=== PATIENT | male | born 1940 | race Hispanic/Latino ===

== ENCOUNTER 2023-10-19 07:36 | Observation (INO) | payer MEDICARE, OTHER ==
[2023-10-16 13:14] LABS: BASOPHILS # (AUTO) 0.1 (0.0-0.1); BASOPHILS % 0.6 % (0.0-1.0); EOSINOPHILS # (AUTO) 0.1 (0.0-0.4); EOSINOPHILS % 0.6 % (0.0-6.0); HEMATOCRIT 40.9 % (38.2-49.6); HEMOGLOBIN 13.6 g/dL (14.0-18.0); LYMPHOCYTES # (AUTO) 2.8 (1.0-3.2); MEAN CORPUSCULAR HGB CONC 33.3 g/dL (31-35); MEAN CORPUSCULAR VOLUME 93.2 fL (81-99); MONOCYTES # (AUTO) 1.1 (0.2-0.8); MONOCYTES % 11.6 % (4.4-11.3); NEUTROPHILS % 55.6 % (38.7-80.0); PLATELET COUNT 199 x10e3/uL (140-360); RED BLOOD COUNT 4.39 x10e6/uL (4.3-5.7); RED CELL DISTRIBUTION WIDTH 13.4 % (11.7-14.4); WHITE BLOOD COUNT 9.03 x10e3/uL (4.8-10.8)
[2023-10-16 13:42] LABS: ALBUMIN 3.7 g/dL (3.5-5.0); ALBUMIN/GLOBULIN RATIO 0.9 (0.8-2.0); ANION GAP 16.9 mmol/L (8-16); BILIRUBIN,TOTAL 0.8 mg/dL (0.2-1.2); CALCIUM 9.1 mg/dL (8.4-10.2); CREATININE, SERUM 1.04 mg/dL (0.72-1.25); POTASSIUM 3.9 mmol/L (3.5-5.1); TOTAL PROTEIN 7.8 g/dL (6.5-8.1)
[2023-10-19] VITALS (11 sets, daily range): BP systolic 154–190; BP diastolic 78–97; PULSE 64–80; RESP 13–18; TEMP 95.6–97.5; O2SAT 64–100
[~2023-10-19] VITALS: Ht 177.8 cm; Wt 89.8 kg
[~2023-10-19 07:36] MED LIST: CLOPIDOGREL75 MG PO; ISOSORBIDE MONO60 MG; LASIX20 MG PO; LIPITOR20 MG PO; NITROGLYCERIN0.4 MG SL; PENTOXIFYLLINE400 MG PO
[2023-10-19] MEDS ORDERED: HEPARIN SOD (PORCINE) 1000 UNIT/ML 30ML ONE (14:57)
[2023-10-19] MEDS ORDERED: LIDOCAINE HCL 2% LOCAL 20 ML VIAL ONE (14:58)
[2023-10-19] MEDS ORDERED: HEPARIN SOD/SOD CHLORIDE 2,000 ML ONE (14:58)
[2023-10-19] MEDS ORDERED: IOPAMIDOL 370 MG/ML 100 ML INFUS..BTL INJ ONE ×2 (14:59→17:08)
[2023-10-19] MEDS ORDERED: NITROGLYCERIN/D5W 200 MCG/ML 250 ML ONE (14:59)
[2023-10-19] MEDS ORDERED: MIDAZOLAM HCL 2 MG/2 ML VIAL ONE (14:59)
[2023-10-19] MEDS ORDERED: SODIUM CHLORIDE 0.9% 1000ML 1,000 ML ONE ×2 (14:59→16:35)
[2023-10-19] MEDS ORDERED: FENTANYL CITRATE/PF 100MCG/2 ML INJ ONE (15:00)
[2023-10-19] MEDS ORDERED: VERAPAMIL HCL 2.5 MG/ML 2 ML VIAL ONE (16:35)
[2023-10-19] MEDS ORDERED: NITROGLYCERIN 0.4 MG SUBL SL PRN (21:15)
[2023-10-20] VITALS: BP 161/80; PULSE 66; RESP 17; TEMP 97.9; O2SAT 99
[2023-10-20 04:00] VITALS: BP 176/73; PULSE 58; RESP 18; TEMP 98.3; O2SAT 99
[2023-10-20 07:58] VITALS: BP 142/88; PULSE 61; RESP 18; TEMP 98.4; O2SAT 99
[2023-10-20 07:59] VITALS: BP 176/73; PULSE 61; RESP 18; TEMP 98.4; O2SAT 99
[2023-10-20] MEDS: FUROSEMIDE 20 MG TAB PO SCH (08:33)
[2023-10-20] MEDS: CLOPIDOGREL BISULFATE 75 MG TAB PO SCH (08:33)
[2023-10-20] MEDS: PENTOXIFYLLINE 400 MG TAB CR PO SCH (08:33)
[2023-10-20] MEDS ORDERED: ATORVASTATIN 40 MG TAB PO SCH (21:00)
== END 2023-10-20 09:40 | disposition home or self-care (01) ==
LOC: CATH LAB 07:36 → MED/SURG 19:49 → INTOOBSV 19:49
PROVIDERS: ADMIT Internal Medicine; ATTEND Internal Medicine
DX: I70.222 Atherosclerosis of native arteries of extremities with rest pain, left leg (principal); I25.10 Atherosclerotic heart disease of native coronary artery without angina pectoris; I25.2 Old myocardial infarction; I11.0 Hypertensive heart disease with heart failure; I50.9 Heart failure, unspecified; E78.00 Pure hypercholesterolemia, unspecified; M19.90 Unspecified osteoarthritis, unspecified site; Z01.812 Encounter for preprocedural laboratory examination; Z79.02 Long term (current) use of antithrombotics/antiplatelets; Z79.899 Other long term (current) drug therapy; Z98.61 Coronary angioplasty status
CPT/HCPCS: 36415; 37229; 75625; 76937; 80053; 85025; C1724; C1725; C1760; C1769 ×5; C1887; G0378 ×2; J1644; J2001; J2250; J3010; J7030; Q9967; 36247; 37228; 75710; 99152; 99153